=== PATIENT | female | born 1965 | race Caucasian/White ===

== ENCOUNTER 2017-11-12 06:27 | Day surgery (SDC) | payer BC ==
[2017-11-11 14:19] VITALS: BMI 19.2
[2017-11-12 06:53] VITALS: O2SAT 100
[2017-11-12] MEDS ORDERED: Midazolam 2 MG/2 ML VIAL ONE (07:31)
[2017-11-12] MEDS ORDERED: Propofol 10 mg/ml Inj (20 ML) ONE (07:32)
[2017-11-12 08:40] VITALS: TEMP 98
[2017-11-12 09:23] VITALS: BP 109/71; PULSE 56; RESP 15
== END 2017-11-12 09:05 | disposition home or self-care (01) ==
LOC: C.ENDO 06:27
PROVIDERS: ATTEND Internal Medicine Gastroenterology
DX: Z12.11 Encounter for screening for malignant neoplasm of colon (principal); K64.8 Other hemorrhoids
CPT/HCPCS: 45378; J2250; J2704